=== PATIENT | male | born 1980 | race Caucasian/White ===

== ENCOUNTER 2023-04-10 09:41 | Inpatient (IN) ==
[2023-04-10] MEDS ORDERED: Pantoprazole 80 mg in NS BAG 80 MG/250 ML BAG IV ONE (10:34)
[2023-04-10] MEDS ORDERED: Pantoprazole VIAL 40 MG VIAL IV ONE (10:34)
[2023-04-10] MEDS ORDERED: NS 0.9% 1000 ml BAG 1,000 ML IV ONE (10:34)
[2023-04-10 10:39] LABS: ABS Lymphocytes 1.2 10^3/uL (1.0-4.8); ABS Monocytes 0.8 10^3/uL (0.0-1.1); ABS Neutrophils 5.2 10^3/uL (1.5-7.6); Eosinophil % 0.5 %; Hematocrit 45.9 % (38-53); Hemoglobin 15.9 g/dL (13.2-16.3); Lymphocyte % 16.6 %; Mean Corpuscular Hemoglobin 30.8 pg (27-33); Mean Corpuscular Hgb Conc 34.6 g/dL (31-36); Mean Platelet Volume 8.9 fL (7.5-11.2); Platelet Count 141 10^3/uL (150-450); Red Blood Count 5.15 10^6/uL (4.06-5.63); Red Cell Distribution Width 13.5 % (12-17); White Blood Count 7.3 10^3/uL (3.6-10.2)
[2023-04-10 11:02] LABS: Albumin 4.3 g/dL (3.2-5.2); Albumin/Globulin Ratio 1.6 (1-3); Calcium 9.2 mg/dL (8.6-10.3); Creatinine, Serum 0.83 mg/dL (0.67-1.17); Globulin 2.7 g/dL (2-4); Magnesium 1.7 mg/dL (1.9-2.7); Potassium 3.3 mmol/L (3.5-5.0); Total Bilirubin 1.4 mg/dL (0.2-1.0); eGFR CKD-EPI 112.8 (>60)
[2023-04-10] MEDS ORDERED: Ondansetron 4 mg VIAL 2 MG/ML 2 ml VIAL IV ONE (11:02)
[2023-04-10] MEDS ORDERED: Iohexol 350 (CONTRAST) 500 ML MDV IV ONE (11:22)
[2023-04-10 11:48] LABS: Alcohol, S < 13 mg/dL (<13)
[2023-04-10 11:51] LABS: Lipase 11 U/L (11.0-82.0)
[2023-04-10] MEDS ORDERED: PEG 3000 GI LAVAGE 1 GALLON PO ONE (17:19)
[2023-04-10] MEDS ORDERED: Magnesium Sulfate 2 gm BAG 2 GM/50 ML BAG IVPB ONE (17:56)
[2023-04-10] MEDS ORDERED: Lactated Ringers 1000 ml BAG 1,000 ML IV ONE (18:16)
[2023-04-10 18:36] LABS: C Reactive Protein 1.66 mg/L (<8.01)
[2023-04-10] MEDS: Pantoprazole VIAL 40 MG VIAL IV SCH (23:25)
[2023-04-10] MEDS: KCL 20 MEQ/100 ML IVPREMIX 20 MEQ/100 ML BAG IV SCH (23:32)
[2023-04-11] MEDS ORDERED: KCL 20 MEQ/100 ML IVPREMIX 20 MEQ/100 ML BAG ONE (01:42)
[2023-04-11] MEDS: KCL 20 MEQ/100 ML IVPREMIX 20 MEQ/100 ML BAG IV SCH (01:44)
[2023-04-11 06:47] LABS: ABS Eosinophils 0.1 10^3/uL (0.0-0.5); ABS Lymphocytes 1.6 10^3/uL (1.0-4.8); ABS Monocytes 0.7 10^3/uL (0.0-1.1); ABS Neutrophils 3.9 10^3/uL (1.5-7.6); Eosinophil % 1.4 %; Hematocrit 40.6 % (38-53); Lymphocyte % 25.4 %; Mean Corpuscular Hemoglobin 30.8 pg (27-33); Mean Corpuscular Hgb Conc 34.4 g/dL (31-36); Mean Corpuscular Volume 89.6 fL (80-97); Mean Platelet Volume 8.8 fL (7.5-11.2); Platelet Count 114 10^3/uL (150-450); Red Blood Count 4.53 10^6/uL (4.06-5.63); Red Cell Distribution Width 13.2 % (12-17); White Blood Count 6.3 10^3/uL (3.6-10.2)
[2023-04-11 07:05] LABS: Albumin 3.7 g/dL (3.2-5.2); Albumin/Globulin Ratio 1.5 (1-3); Calcium 8.3 mg/dL (8.6-10.3); Creatinine, Serum 0.93 mg/dL (0.67-1.17); Globulin 2.5 g/dL (2-4); Potassium 3.5 mmol/L (3.5-5.0); Total Bilirubin 0.9 mg/dL (0.2-1.0); Total Protein 6.2 g/dL (6.4-8.9); eGFR CKD-EPI 105.8 (>60)
[2023-04-11 07:37] LABS: Magnesium 2.1 mg/dL (1.9-2.7)
[2023-04-11] MEDS ORDERED: KCL 20 MEQ/100 ML IVPREMIX 20 MEQ/100 ML BAG IV SCH (08:00)
[2023-04-11] MEDS: Pantoprazole VIAL 40 MG VIAL IV SCH (08:14)
[2023-04-11 10:48] VITALS: BP 132/80
[2023-04-13 16:45] LABS: Adenovirus F40/41 Negative (Negative); Astrovirus Negative (Negative); Cryptosporidium species Negative (Negative); Cyclospora cayetanensis Negative (Negative); Entamoeba histolytica Negative (Negative); Enteroaggregative E.coli(EAEC) Negative (Negative); Enteropathogenic Ecoli(EPEC) Negative (Negative); Enterotoxigenic Ecoli(ETEC) Negative (Negative); Norovirus GI/GII Negative (Negative); Plesiomonas shigelloides Negative (Negative); Salmonella species Negative (Negative); Sapovirus Negative (Negative); Shiga toxin producing E. coli Negative (Negative); Shigella/Enteroinvasive E.coli Negative (Negative); Specimen Source STOOL; Vibrio cholerae Negative (Negative); Yersinia species Negative (Negative)
== END 2023-04-11 15:19 | disposition home or self-care (01) | DRG 253 ==
LOC: ED 09:41 → EDHOLD 16:19 → SSU 18:50
PROVIDERS: ADMIT Internal Medicine; ATTEND Internal Medicine

== ENCOUNTER 2023-08-05 09:39 | Inpatient (IN) ==
[2023-08-05 10:21] LABS: ABS Monocytes 0.6 10^3/uL (0.0-1.1); ABS Neutrophils 3.8 10^3/uL (1.5-7.6); Eosinophil % 0.6 %; Hematocrit 44.7 % (38-53); Hemoglobin 15.1 g/dL (13.2-16.3); Mean Corpuscular Hemoglobin 29.8 pg (27-33); Mean Corpuscular Hgb Conc 33.8 g/dL (31-36); Mean Corpuscular Volume 88.1 fL (80-97); Mean Platelet Volume 8.9 fL (7.5-11.2); Nucleated Red Blood Cells % 0.1 %/100WBC (0.0-0.8); Platelet Count 109 10^3/uL (150-450); Red Blood Count 5.08 10^6/uL (4.06-5.63); Red Cell Distribution Width 14.1 % (12-17); White Blood Count 5.5 10^3/uL (3.6-10.2)
[2023-08-05 10:33] LABS: INR 0.87 (0.83-1.13)
[2023-08-05] MEDS: Lactated Ringers 1000 ml BAG 1,000 ML IV ONE ×2 (10:33)
[2023-08-05] MEDS: Ondansetron 4 mg VIAL 2 MG/ML 2 ml VIAL IV ONE (10:33)
[2023-08-05] MEDS: Thiamine 100 MG/ML 2 ml VIAL (200 mg) IM ONE (10:33)
[2023-08-05 10:41] LABS: ALT 169 U/L (7-52); Albumin 4.6 g/dL (3.2-5.2); Albumin/Globulin Ratio 1.5 (1-3); Alkaline Phosphatase 55 U/L (35-149); Anion Gap 16 mmol/L (2-16); Blood Urea Nitrogen 80 mg/dL (6-24); CO2 Carbon Dioxide 23 mmol/L (22-32); Chloride 97 mmol/L (101-111); Creatinine, Serum 3.31 mg/dL (0.67-1.17); Globulin 3.1 g/dL (2-4); Glucose 177 mg/dL (70-100); Sodium 136 mmol/L (135-145); Total Bilirubin 1.3 mg/dL (0.2-1.0); Total Protein 7.7 g/dL (6.4-8.9); eGFR CKD-EPI 23.1 (>60)
[2023-08-05] MEDS: LORazepam 2 mg VIAL 1 ml IV PUSH SCH (10:57)
[2023-08-05] MEDS ORDERED: Multivitamins/Minerals TAB PO SCH (11:00)
[2023-08-05 13:10] LABS: Alcohol, S 144 mg/dL (<13)
[2023-08-05 14:59] LABS: Potassium Redraw 4.5 mmol/L (3.5-5.0)
[2023-08-05 15:21] LABS: Urine Benzodiazepine Screen None Detected (None Detect); Urine Cannabinoids Screen None Detected (None Detect); Urine Opiates Screen None Detected (None Detect)
[2023-08-05] MEDS: Pantoprazole VIAL 40 MG VIAL IV ONE (15:26)
[2023-08-05] MEDS: Ondansetron 4 mg VIAL 2 MG/ML 2 ml VIAL IV PRN (15:27)
[2023-08-05 18:14] LABS: Urine Buprenorphine Screen None Detected (None Detect); Urine Fentanyl Screen None Detected (None Detect); Urine Hydrocodone Screen None Detected (None Detect)
[2023-08-06] MEDS ORDERED: Lorazepam PYXIS KEY PRN (01:26)
[2023-08-06] MEDS: LORazepam 2 mg VIAL 1 ml IV PUSH ONE (01:31)
[2023-08-06] MEDS: diazePAM INJ CARPUJECT 5 MG/ML SYRINGE IV ONE ×2 (03:49→06:19)
[2023-08-06 04:05] LABS: Hematocrit 40.2 % (38-53); Hemoglobin 13.6 g/dL (13.2-16.3); Mean Corpuscular Hemoglobin 30.1 pg (27-33); Mean Corpuscular Hgb Conc 33.8 g/dL (31-36); Red Blood Count 4.51 10^6/uL (4.06-5.63); Red Cell Distribution Width 14.3 % (12-17); White Blood Count 5.1 10^3/uL (3.6-10.2)
[2023-08-06 04:18] LABS: ABS Lymphocytes 0.7 10^3/uL (1.0-4.8); ABS Monocytes 0.6 10^3/uL (0.0-1.1); ABS Neutrophils 3.7 10^3/uL (1.5-7.6); Eosinophil % 0.5 %; Lymphocyte % 14.2 %; Mean Platelet Volume 8.7 fL (7.5-11.2); Nucleated Red Blood Cells % 0.1 %/100WBC (0.0-0.8); Platelet Count 64 10^3/uL (150-450)
[2023-08-06 05:07] LABS: Albumin 4.2 g/dL (3.2-5.2); Albumin/Globulin Ratio 1.5 (1-3); C Reactive Protein 2.87 mg/L (<8.01); Calcium 8.9 mg/dL (8.6-10.3); Creatinine, Serum 2.28 mg/dL (0.67-1.17); Globulin 2.8 g/dL (2-4); Magnesium 1.5 mg/dL (1.9-2.7); Potassium 3.7 mmol/L (3.5-5.0); Total Bilirubin 2.1 mg/dL (0.2-1.0); eGFR CKD-EPI 36.1 (>60)
[2023-08-06] MEDS: Magnesium Sulf 4 GM/100 ML IV 4,000 MG/100 ML BAG IVPB ONE (06:35)
[2023-08-06] MEDS: LORazepam 2 mg VIAL 1 ml IV PUSH SCH (08:11)
[2023-08-06] MEDS: Thiamine 100 MG/ML 2 ml VIAL (200 mg) IM ONE (10:03)
[2023-08-06] MEDS: Multivitamins/Minerals TAB PO SCH (15:17)
[2023-08-06] MEDS: Potassium Chlor 20 meq TAB.ER PO ONE (16:24)
[2023-08-07] MEDS: diazePAM INJ CARPUJECT 5 MG/ML SYRINGE IV ONE (00:02)
[2023-08-07 08:20] LABS: ABS Eosinophils 0.1 10^3/uL (0.0-0.5); ABS Lymphocytes 0.8 10^3/uL (1.0-4.8); ABS Monocytes 0.5 10^3/uL (0.0-1.1); ABS Neutrophils 3.5 10^3/uL (1.5-7.6); ABS Nucleated RBC 0.01 10^3/ul; Eosinophil % 1.3 %; Hematocrit 40.7 % (38-53); Hemoglobin 13.6 g/dL (13.2-16.3); Lymphocyte % 16.9 %; Mean Corpuscular Hemoglobin 29.8 pg (27-33); Mean Corpuscular Hgb Conc 33.4 g/dL (31-36); Mean Corpuscular Volume 89.2 fL (80-97); Mean Platelet Volume 9.5 fL (7.5-11.2); Nucleated Red Blood Cells % 0.2 %/100WBC (0.0-0.8); Platelet Count 57 10^3/uL (150-450); Red Blood Count 4.56 10^6/uL (4.06-5.63); Red Cell Distribution Width 14.1 % (12-17); White Blood Count 4.9 10^3/uL (3.6-10.2)
[2023-08-07 08:37] LABS: Albumin 4.3 g/dL (3.2-5.2); Albumin/Globulin Ratio 1.5 (1-3); Calcium 9.1 mg/dL (8.6-10.3); Creatinine, Serum 1.58 mg/dL (0.67-1.17); Globulin 2.8 g/dL (2-4); Potassium 3.6 mmol/L (3.5-5.0); Total Bilirubin 1.5 mg/dL (0.2-1.0); Total Protein 7.1 g/dL (6.4-8.9)
[2023-08-08 06:56] LABS: ABS Eosinophils 0.1 10^3/uL (0.0-0.5); ABS Lymphocytes 1.1 10^3/uL (1.0-4.8); ABS Monocytes 0.6 10^3/uL (0.0-1.1); ABS Nucleated RBC 0.01 10^3/ul; Eosinophil % 2.3 %; Hematocrit 42.6 % (38-53); Hemoglobin 14.1 g/dL (13.2-16.3); Lymphocyte % 23.7 %; Mean Corpuscular Hemoglobin 30.4 pg (27-33); Mean Corpuscular Hgb Conc 33.1 g/dL (31-36); Mean Platelet Volume 9.7 fL (7.5-11.2); Nucleated Red Blood Cells % 0.2 %/100WBC (0.0-0.8); Platelet Count 50 10^3/uL (150-450); Red Blood Count 4.63 10^6/uL (4.06-5.63); Red Cell Distribution Width 13.9 % (12-17); White Blood Count 4.8 10^3/uL (3.6-10.2)
[2023-08-08 07:27] LABS: Albumin 4.1 g/dL (3.2-5.2); Albumin/Globulin Ratio 1.5 (1-3); Direct Bilirubin 0.2 mg/dL (0.03-0.18); Globulin 2.8 g/dL (2-4); Indirect Bilirubin 1.1 mg/dL (0.3-1.0); Total Bilirubin 1.3 mg/dL (0.2-1.0); Total Protein 6.9 g/dL (6.4-8.9)
[2023-08-08 08:43] LABS: Folate 19.96 ng/mL (5.90-24.80)
[2023-08-08 13:46] VITALS: BP 135/79
[2023-08-08 16:13] LABS: Creatinine, Serum 1.45 mg/dL (0.67-1.17); eGFR CKD-EPI 62.1 (>60)
== END 2023-08-08 17:40 | disposition home or self-care (01) | DRG 253 ==
LOC: ED 09:39 → EDHOLD 13:49 → SUATTDRO 13:49 → MED 08-06 13:29
PROVIDERS: ADMIT Internal Medicine; ATTEND Internal Medicine